=== PATIENT | male | born 1965 | race Hispanic/Latino ===

== ENCOUNTER 2025-06-23 07:06 | Day surgery (SDC) | payer BC ==
[2025-06-20 09:16] LABS: IMMATURE GRANULOCYTE ABSOLUTE 0.02 K/uL (0-1); NUCLEATED RED BLOOD CELLS 0.0 % (0.0-0.19); PLATELET COUNT (AUTO) 270 K/uL (130-400); RED BLOOD CELL COUNT(AUTO) 4.85 MIL/uL (4.50-6.20); RED CELL DISTRIBUTION WIDTH 13.3 % (11.0-15.5); WHITE BLOOD COUNT (AUTO) 5.7 K/uL (4.8-10.8)
[2025-06-20 09:22] LABS: CREATININE 0.9 mg/dL (0.5-1.3); GLOMERULAR FILTR. RATE CALC 98.0 mL/min (>90); GLUCOSE,RANDOM 151.0 mg/dL (70-105); SODIUM SERUM 140.0 mmol/L (136-145); UREA NITROGEN, BLOOD 12.0 mg/dL (7-18)
[2025-06-20 09:28] VITALS: BP 130/78; PULSE 81; RESP 18; TEMP 98.1
[~2025-06-23] VITALS: Ht 182.9 cm; Wt 115.5 kg
[~2025-06-23 07:06] MED LIST: APIX5TAB PO; ATOR40TA71 PO; DRON400T7 PO; TIRZ10PE SQ
[2025-06-23 07:15] VITALS: BP 114/67; PULSE 75; RESP 18; TEMP 97.2
--- NOTE | 2025-06-23 08:15 | EKG ---
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
--- NOTE | 2025-06-23 10:38 | NUR ---
PT SYNCHRONIZED CARDIOVERTED [address] HARPREET SHANNON AT BEDSIDE VSS NAD.
--- NOTE | 2025-06-23 10:44 | NUR ---
JULES THOMSON 4 SPEAKING WITH STAFF. VSS NAD
[2025-06-23 10:50] VITALS: BP 103/67; PULSE 66; RESP 14; TEMP 97.7
[2025-06-23 11:05] VITALS: BP 105/67; PULSE 66; RESP 12
[2025-06-23 11:20] VITALS: BP 96/62; PULSE 64; RESP 13
[2025-06-23 11:35] VITALS: BP 117/68; PULSE 64; RESP 14
--- NOTE | 2025-06-23 11:35 | NUR ---
BOTH PT AND GIVEN VERBAL AND WRITTEN DISCHARGE INSTRUCTIONS IV REMOVED SITE ASYMPTOMATIC PT TAKEN OUT VIA WHEELCHAIR
--- NOTE | 2025-06-24 11:52 | EKG ---
[facility] Test Date: 2025-06-23 Test Time: 10:37:21 Pat Name: LISA ANDERSON Department: [facility] Room: Gender: M Header Dock: [id number] : 1965 Requested By: CONRADO MULLINS Order Number: [id number] Reading MD: Boaz De Measurements Intervals [place] Rate: 66 P: 40 [place]: 179 QRS: 6 QRSD: 100 T: 30 QT: 444 QTc: 465 Interpretive Statements Sinus rhythm Atrial premature complex Low voltage, extremity leads Compared to ECG 06/23/2025 07:09:32 Atrial premature complex(es) now present Atrial fibrillation no longer present Myocardial infarct finding no longer present Electronically Signed On 06-24-2025 15:36:02 CDT by Boaz De Please click the below link to view image of tracing.
--- NOTE | 2025-07-04 09:49 | PRN ---
Procedure Note Date of procedure: 06/23/2025 Diagnosis: Persistent atrial fibrillation Procedure: Cardioversion Physician: Jose Mullins MD The patient was brought to the day patient area in a fasting state. Anesthesia was provided by the anesthesia service. Cardioversion was performed with a synchronized shock at 200 joules resulting in sinus rhythm. The patient tolerated the procedure well. Final diagnosis: Persistent atrial fibrillation, status post successful cardi oversion Disposition: The patient will be discharged later today and will follow up with me in the office in approximately two weeks. JOSE MULLINS MD Jul 04, 2025 09:49
== END 2025-06-23 11:40 | disposition home or self-care (01) ==
LOC: DAH 07:06
PROVIDERS: ATTEND Internal Medicine Cardiovascular Disease
DX: I48.19 Other persistent atrial fibrillation (principal); I42.0 Dilated cardiomyopathy; E11.9 Type 2 diabetes mellitus without complications; G47.33 Obstructive sleep apnea (adult) (pediatric); Z98.890 Other specified postprocedural states; Z90.89 Acquired absence of other organs; Z88.0 Allergy status to penicillin; Z99.89 Dependence on other enabling machines and devices; Z79.01 Long term (current) use of anticoagulants; Z79.899 Other long term (current) drug therapy
CPT/HCPCS: 80048; 85025; 36415; 92960; 82948; 93005 ×2; J2704 ×2; A4620; A4215; A4222; A4221; A4663; A4216; A4606; A4223 ×3; J3490

== ENCOUNTER 2025-10-22 07:54 | Day surgery (SDC) | payer BC ==
[2025-10-20 08:26] LABS: IMMATURE GRANULOCYTE ABSOLUTE 0.01 K/uL (0-1); NUCLEATED RED BLOOD CELLS 0.0 % (0.0-0.19); PLATELET COUNT (AUTO) 218 K/uL (130-400); RED BLOOD CELL COUNT(AUTO) 4.92 MIL/uL (4.50-6.20); RED CELL DISTRIBUTION WIDTH 13.2 % (11.0-15.5); WHITE BLOOD COUNT (AUTO) 5.9 K/uL (4.8-10.8)
[2025-10-20 08:32] VITALS: BP 126/73; PULSE 72; RESP 18; TEMP 97.3
[2025-10-20 08:46] LABS: ASPARTATE AMINOTRANSFERASE 17.0 U/L (10-37); CREATININE 1.2 mg/dL (0.5-1.3); GLOMERULAR FILTR. RATE CALC 69.0 mL/min (>90); GLUCOSE,RANDOM 101.0 mg/dL (70-105); SODIUM SERUM 138.0 mmol/L (136-145); TOTAL PROTEIN, SERUM 7.1 g/dL (6.0-8.3); UREA NITROGEN, BLOOD 16.0 mg/dL (7-18)
[~2025-10-22] VITALS: Ht 182.9 cm; Wt 116.8 kg
[~2025-10-22 07:54] MED LIST changes: +AMIO200T73 PO; -DRON400T7 PO
--- NOTE | 2025-10-22 08:17 | EKG ---
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
[2025-10-22 08:20] VITALS: BP 115/78; PULSE 70; RESP 16; TEMP 97.9
[2025-10-22] MEDS ORDERED: LIDOCAINE HCL MPF 1% 5ML VIAL ONE (11:09)
--- NOTE | 2025-10-22 11:16 | NUR ---
PT SYNCHRONIZED CARDIOVERTED 200 JOULES PT TOLERATED WELL NAD VSS. PT DID REMAIN IN ATRIAL FIB
--- NOTE | 2025-10-22 11:17 | NUR ---
PT SYNCHRONIZED CARDIOVERTED 2ND ATTEMPT 200 JOULES PT TOLERATED WELL NAD VSS PT DID CONVERT TO NSR
--- NOTE | 2025-10-22 11:22 | EKG ---
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
--- NOTE | 2025-10-22 11:22 | NUR ---
PT AWAKE VSS NAD PT SPEAKING WITH STAFF AND DR. MULLINS AT BEDSIDE
[2025-10-22 11:25] VITALS: BP 119/66; PULSE 60; RESP 14; TEMP 97.3
[2025-10-22 11:35] VITALS: BP 127/60; PULSE 60; RESP 14
[2025-10-22 11:45] VITALS: BP 115/62; PULSE 60; RESP 14
[2025-10-22 11:55] VITALS: BP 121/65; PULSE 62; RESP 14
[2025-10-22 12:05] VITALS: BP 116/72; PULSE 61; RESP 15
--- NOTE | 2025-10-22 12:05 | NUR ---
PT AND SPOUSE GIVEN VERBAL AND WRITTEN DISCHARGE INSTRUCTIONS, IV REMOVED SITE ASYMPTOMATIC. PT TAKEN OUT VIA WHEELCHAIR SPOUSE DRIVING.
--- NOTE | 2025-11-26 12:06 | PRN ---
Procedure Note Date of procedure: 10/22/2025 Diagnosis: Persistent atrial fibrillation Procedure: Cardioversion Physician: Jose Mullins MD The patient was brought to the day patient area in a fasting state. Anesthesia was provided by the anesthesia service. Cardioversion was performed with a synchronized shock at 200 joules resulting in sinus rhythm. The patient tolerated the procedure well. Final diagnosis: Persistent atrial fibrillation, status post successful card ioversion Disposition: The patient will be discharged later today and will follow up with me in the office in approximately two weeks. JOSE MULLINS MD Nov 26, 2025 12:06
== END 2025-10-22 12:13 | disposition home or self-care (01) ==
LOC: DAH 07:54
PROVIDERS: ATTEND Internal Medicine Cardiovascular Disease
DX: I48.19 Other persistent atrial fibrillation (principal); E78.5 Hyperlipidemia, unspecified; E11.9 Type 2 diabetes mellitus without complications; Z88.0 Allergy status to penicillin; Z79.01 Long term (current) use of anticoagulants; Z79.899 Other long term (current) drug therapy
CPT/HCPCS: 36415; 92960; 82948; 93005 ×2; 80050; J2704; J3490; A4620; A4215; A4222; A4221; A4663; A4216; A4606; A4223 ×3; 80053; 84443; 85025